=== PATIENT | female | born 1950 | race Two or more races ===

== ENCOUNTER 2017-01-08 17:00 | Observation (INO) | payer OTHER ==
[~2017-01-08] VITALS: Ht 160 cm; Wt 58.6 kg
--- NOTE | ~2017-01-08 | ESTC ---
Cardiac Perfusion Imaging Demographics Patient Name LAUREN BOOTH Gender Female Patient Number [id number] Race Other Visit Number [id number] Ethnicity Corporate ID Room Number G6314 Accession Number [id number] Height Date of 1950 Weight Age 66 year(s) BSA Referring Physician Maciej GUY MD Interpreting LYLY - Karey Date of study 01/09/2017 Physician Bhavesh Spangler MD Supervising MD/MLP Bhavesh Spangler NM Technologist Frances De La Garza MD Ordering Physician Maciej Marte Stress Mandi Isbell RDCS, monitor technician RVT Stress ECG Reading Bhavesh Spangler Nurse Bryson Oliveira MD The procedure was explained in detail to the patient. Risks, complications and alternative treatments were reviewed. Written consent was obtained. Medications Reviewed with Patient prior to Procedure. Procedure Procedure Type: Nuclear Stress Test:Exercise, Cardiolite Stress Test Procedure Start time: 01/09/2017 00:00 Indications: Chest pain. Risk Factors The patient risk factors include:hypercholesterolemia and hypertension. Conclusions Summary Perfusion Images: The overall quality of the study is fair, due to gastrointestinal tracer uptake. Left ventricular cavity is noted to be normal on the stress and normal on the rest images. There is no evidence of abnormal lung activity. The right ventricle is not visualized an cannot be assessed. Impression ECG portion of exercise stress test is clinically negative for ischemia by diagnostic criteria. Pt reached 89% of MPHR, and achieved 6.9 METS. Test terminated due to inability to keep up with treadmill due to gait issues. Myocardial perfusion imaging is essentially normal. The inferior wall matched defect is consistent with soft tissue attenuation. Overall left ventricular systolic function was normal without regional wall motion abnormalities. Calculated LVEF is 80% and TID ratio is 0.91. There are no previous studies for comparison . Stress Protocols Resting ECG NSR Resting HR:75 bpm Resting BP:127/70 mmHg Pre-stress physical exam: clear lungs NAD Stress Protocol:Exercise - Kaleb Peak HR:134 bpm HR/BP product:[id number] Peak BP:187/70 mmHg Max exercise: 6.9 METS Predicted HR: 156 bpm % of predicted HR: 86 ECG Findings No ECG changes suggestive of ischemia. Arrhythmias No rhythm abnormality. Symptoms Fatigue. Stress Interpretation Appropriate hemodynamic response to exercise. No significant ST-T wave changes with exercise. EKG portion is negative for ischemia by diagnostic criteria. Imaging Results Summed scores - Summed stress score: 9 - Summed rest score: 10 - Summed difference score: -1 Stress ejection Ejection fraction:80 % EDV :51 ml ESV :10 ml Stroke volume :41 ml LV mass :102 gr Imaging Protocols Rest Stress Isotope:Tc99m Sestamibi IV Isotope: Tc99m Sestamibi IV Isotope dose:9.6 mCi Isotope dose:28.9 mCi Date:01/09/2017 08:03 Date:01/09/2017 09:43 Technique: SPECT Technique: Gated Supine SPECT Supine IV remains in place after procedure. Scan Time:30 minutes post injection Scan Time:15-30 minutes post injection Medical History Admission Data Admission date: 01/08/2017 Admission Time: 17:10 Hospital Status: Inpatient. Signatures dtt: TEVIN CARLOS dtd: 01/09/17 0000 Physician Self Edit
--- NOTE | ~2017-01-08 | ECHO ---
Transthoracic Echocardiography Report (TTE) Demographics Patient Name EMMY AGUILAR Date of Study 01/09/2017 Patient Number [id number] Visit Number [id number] Date of 1950 Room Number G6314 Gender Female Number Age 66 year(s) Referring Maciej Marte Senior Grants Officer Jordon Rush Physician RDCS, RVT Physician Interpreting Bhavesh Spangler Ornamental Metal Erector Physician Supervising Ordering Maciej Marte MD/MLP Physician Nurse Stress Interior Designer Conclusions Contractility Score Summary Normal Left Ventricular contractility was noted. Summary Normal LV/RV size and systolic function. The estimated left ventricular ejection fraction is 60%. Diastolic assessment reveals Grade I diastolic dysfunction. No significant valvular abnormalities. Procedure Type of Study TTE procedure:2D Echocardiogram. Procedure Date Date: 01/09/2017 Start: 01:42 PM Study Location: Inpatient Portable Technical Quality: Adequate visualization Indications:Neck Pain and Left Arm Pain. Appropriate Use Criteria: 9 Patient Status: Routine HR: 73 bpm BP: 127/70 mmHg M-Mode/2D Measurements LV Diastolic Dimension: 4.24 cm LV Systolic Dimension: 2.97 cm LV Septum Diastolic: 0.76 cm LV PW Diastolic: 0.83 cm AO Root Dimension: 3.2 cm Cardiac Output: 5.66 l/min AV Cusp Separation: 2.1 cm RV Diastolic Dimension: 2.82 cm LA volume: 43 ml LVOT: 2 cm RV Base: 3.18 cm LVOT VTI: 24.7 cm RV Mid: 2.53 cm LV Stroke volume: 77.56 ml TAPSE: 1.77 cm TDI-S': 13.6 cm/s Doppler Measurements AV Peak Velocity: 1.13 m/s MV Peak E-Wave: 0.58 m/s AV Peak Gradient: 5.11 mmHg MV Peak A-Wave: 0.86 m/s AV Mean Gradient: 4 mmHg MV E/A Ratio: 0.68 LVOT Peak Velocity: 1.14 m/s MV Deceleration Time: 303 msec TR Velocity:2.25 m/s PV Peak Velocity: 1.24 m/s TR Gradient:20.25 mmHg PV Peak Gradient: 6.15 mmHg Estimated RAP:5 mmHg Estimated PASP: 25.25 mmHg Estimated RVSP: 25 mmHg A' Septal Velocity: 0.1 m/s E' Septal Velocity: 0.06 m/s A' Lateral Velocity: 0.16 m/s E' Lateral Velocity: 0.1 m/s Findings Left Ventricle The left ventricle is normal in size . Diastolic assessment reveals Grade I diastolic dysfunction. Right Ventricle Normal right ventricle structure and function. Left Atrium Normal left atrial size. Right Atrium The right atrium is grossly normal in size (see subcostal images). IVC is normal in size and collapses with inspiration. Mitral Valve Trivial mitral regurgitation by color Doppler. Aortic Valve Normal aortic valve structure and function. No AI. Tricuspid Valve Mild tricuspid regurgitation by color Doppler. Pulmonic Valve PV is not well visualized. No PI. Pericardial Effusion No evidence of pericardial effusion. Miscellaneous Visualized portions of the aortic root and ascending aorta appear normal in size. Pleural Effusion No evidence of pleural effusion. Contractility Score LV regional wall motion:(0-Non visualized 1-Normal 2-Hypokinesis 3-Akinesis 4-Dyskinesis 5-Aneurysm) Signature dtt: TEVIN CARLOS dtd: 01/09/17 [id number] Physician Self Edit
--- NOTE | ~2017-01-08 | HP ---
PATIENT'S NAME: EMMY STARK [facility] AGE: 66 Y [address] ROOM: G6314 [place] [address] LOCATION: [facility] ADMIT DATE: 01/08/2017 History & Physical DISCHARGE DATE: FAMILY PHYSICIAN: PHYSICIAN, UNKNOWN ATTENDING PHYSICIAN: Rosanna Wing DATE OF SERVICE: HISTORY OF PRESENT ILLNESS: Ms. Stark came to the office, having been sent by Dr. William Reyes from his office because of pain in her left arm, left shoulder as well as throat where she feels like she has a ball in her throat. The pain also is noticed between her shoulder blades. It seemed to be fairly severe off and on. This has been ongoing for past 2 months. She is primarily a Amharic speaking patient from [place]. She had her daughter interpreted for us today. She was seen in August 2016 with shortness of breath and pain in the left side of the neck and shoulder. These pains had been occurring at random and typically she sits down and the symptoms seem to past. She had, in September 2015, workup done in [facility] with an EKG, which appears to have been relatively normal. She had an echocardiogram, which showed normal ejection fraction without any significant valvular abnormalities. She did have a stress EKG. It appears as if she walked for about 6 minutes on Kaleb protocol and had a [address] depression and 1 in lead V4. Currently, the patient's pain seemed to have gotten a lot worse. In August, when she saw me, she had been in functional class 2 with no paroxysmal nocturnal dyspnea or lightheadedness. She has had intermittent dizziness and vertigo with some tinnitus involving the left ear. She has never had any actual syncope. She has no palpitations. Her ankles do swell up somewhat. The patient has history of hypertension. She is not diabetic. Her cholesterol is somewhat elevated. She never smoked and there is no family history of premature coronary artery disease. She has never had an UT or angina or nitroglycerin use. She has no history of rheumatic fever. She does have a history of heart murmur. Her echo did appear to show aortic sclerosis. There is no history of congestive heart failure, dilated heart or any diagnosed arrhythmias. At that time, I noted that some of the chest pain may be chest wall tenderness, but there is no good way to tell that this is not coronary artery PATIENT'S NAME: LAUREN [facility] AGE: 66 Y [address] ROOM: G6314 [place] [address] LOCATION: [facility] ADMIT DATE: 01/08/2017 History & Physical DISCHARGE DATE: FAMILY PHYSICIAN: PHYSICIAN, UNKNOWN ATTENDING PHYSICIAN: Rosanna Wing disease given her age of 66 and she had a positive stress EKG. Since my suspicion was still low to intermediate probability, I did put her on a baby aspirin, bisoprolol, and set her up for a coronary CT angiography. The insurance company turned down, saying that they did not think that it was necessary. The patient did not want to have any other testing done at that time because of concerns regarding cost. Since her pains are getting a lot worse now, she has come back today. An EKG done in the office, was essentially normal. She has no blood test done in the office, but she did receive one nitroglycerin with complete resolution of her chest pain except for some in the neck. MEDICATIONS: Her current list of medications are; 1. Aspirin once a day. 2. Bisoprolol 2.5 mg once a day. 3. Nitroglycerin as needed. ALLERGIES: NO KNOWN DRUG ALLERGIES. PAST MEDICAL HISTORY: Essentially unremarkable. SOCIAL HISTORY: The patient is currently working at [employer]. She is a nonsmoker and nondrinker. Her appetite and weight have been stable. Sleep is fair. FAMILY HISTORY: No premature coronary artery disease. REVIEW OF SYSTEMS: A 12-point review of systems revealed no significant positives. PHYSICAL EXAMINATION: VITAL SIGNS: Her blood pressure is 140/80, heart rate is in the 70s and regular, respiration is 18, and afebrile. HEENT: Normal. NECK: Supple with no JVD, thyromegaly, lymphadenopathy, or carotid bruit. HEART: PMI is not well located. First and second heart sounds are regular. There are no added sounds or murmurs. CHEST: Clear to auscultation. ABDOMEN: Soft and nontender. Bowel sounds are normally present. EXTREMITIES: Revealed no edema. CENTRAL NERVOUS SYSTEM: Overall appears to be intact. [facility] AGE: 66 Y [address] ROOM: G[address] [place] [id number] LOCATION: [facility] ADMIT DATE: 01/08/2017 History & Physical DISCHARGE DATE: FAMILY PHYSICIAN: PHYSICIAN, UNKNOWN ATTENDING PHYSICIAN: Rosanna Wing ASSESSMENT: A 66-year-old female patient with borderline hypertension and borderline elevated cholesterol, presents with typical and atypical chest pain. Her workup in [facility] in September 2015 did suggest the possibility of underlying coronary artery disease. However, she also had some chest wall pain. In addition, she has some vertigo and tinnitus along with some ankle edema. RECOMMENDATIONS: We will admit her for observation, rule her out for UT, and do a series of cardiac enzymes and echocardiogram and do a stress test tomorrow. Based on what we find on the stress test, further management will be undertaken. MD RENETTA DARLING/al /[id number] D: [id number] T: [id number] HISTORY & PHYSICAL
[2017-01-08] MEDS ORDERED: DEXILANT60 MG PO (17:22)
[2017-01-08] MEDS ORDERED: ASPIRIN LO-DOSE81 MG PO (17:22)
[2017-01-08] MEDS ORDERED: BISOPROLOL FUMAR5 MG PO (17:24)
[2017-01-08 19:42] LABS: BASOPHIL % 0.6 %; EOSINOPHIL # 0.2 K/uL (0.0-0.5); EOSINOPHIL % 3.7 %; HEMATOCRIT 41.1 % (33.0-46.0); HEMOGLOBIN 13.4 g/dL (10.0-15.0); IMMATURE GRANULOCYTE % 0.4 %; LYMPHOCYTE # 1.7 K/uL (0.8-4.0); LYMPHOCYTE % 32.9 %; MCH 29.6 pg (27.0-34.0); MCHC 32.6 gm/dL (32.0-36.5); MCV 90.7 fl (83.0-98.0); MONOCYTE # 0.4 K/uL (0.0-1.0); MONOCYTE % 8.5 %; MPV 9.2 fl (9.4-12.4); NEUTROPHIL # (ANC) 2.8 K/uL (1.8-7.8); NEUTROPHIL % 53.9 %; NRBC % 0 /100WBC (0-0.00); PLATELET COUNT 319 K/uL (150-450); RBC 4.53 M/uL (3.50-5.50); RDW-CV 12.2 % (11.9-14.6); WBC 5.2 K/uL (4.0-11.0)
[2017-01-08 19:59] LABS: ALBUMIN 3.7 gm/dL (3.5-5.0); ALK PHOS 98 IU/L (33-138); ALT 24 IU/L (12-78); ANION GAP 11.8 (10.0-19.0); AST 19 IU/L (10-40); BLOOD UREA NITROGEN 12 mg/dL (6-24); CALCIUM 8.6 mg/dL (8.5-10.5); CHLORIDE 109 mMol/L (96-110); CO2 24 mMol/L (22-32); CREATININE 0.6 mg/dL (0.5-1.1); ESTIMATED GFR (MDRD EQUATION) > 60; POTASSIUM 3.8 mMol/L (3.7-5.1); SODIUM 141 mMol/L (135-145); TOTAL BILIRUBIN 0.5 mg/dL (0.0-1.5); TOTAL PROTEIN 7.4 g/dL (6.0-8.4)
[2017-01-08 21:02] LABS: INR - (THERAPEUTIC) 1.02 (0.92-1.07); PROTIME 10.7 SECONDS (9.8-11.4)
== END 2017-01-09 15:00 | disposition disaster alternative care site (69) ==
LOC: GPCU 17:10
PROVIDERS: ADMIT Internal Medicine Interventional Cardiology
DX: R07.89 Other chest pain (principal); M54.2 Cervicalgia; M25.512 Pain in left shoulder; I10 Essential (primary) hypertension; R42 Dizziness and giddiness; H93.12 Tinnitus, left ear; Z79.82 Long term (current) use of aspirin; Z79.899 Other long term (current) drug therapy
CPT/HCPCS: A9500; G0378; G0379; J1644

== ENCOUNTER → 2017-04-28 | Outpatient (CLI) | payer OTHER ==
[~2017-04-28] MED LIST: ASPIRIN LO-DOSE81 MG PO; BISOPROLOL FUMAR5 MG PO; DEXILANT60 MG PO
== END | disposition disaster alternative care site (69) ==
LOC: GCAR 16:00
DX: R07.9 Chest pain, unspecified (principal)

== ENCOUNTER → 2017-04-28 | Outpatient (CLI) | payer OTHER ==
[2017-04-28 16:41] LABS: ANION GAP 9.8 (10.0-19.0); BLOOD UREA NITROGEN 8 mg/dL (6-24); CALCIUM 8.8 mg/dL (8.5-10.5); CHLORIDE 106 mMol/L (96-110); CO2 28 mMol/L (22-32); CREATININE 0.6 mg/dL (0.5-1.1); MAGNESIUM 2.2 mg/dL (1.8-2.6); POTASSIUM 3.8 mMol/L (3.7-5.1); SODIUM 140 mMol/L (135-145)
== END | disposition disaster alternative care site (69) ==
LOC: LGSOS 15:55
PROVIDERS: Internal Medicine Interventional Cardiology
DX: I10 Essential (primary) hypertension (principal)